=== PATIENT | female | born 1940 | race Caucasian/White ===

== ENCOUNTER 2018-06-02 19:54 | Outpatient (CLI) | payer MEDICARE, BC ==
--- NOTE | 2018-06-03 13:21 | Ultrasound Report ---
Reason: DM W/NEUROPATHY, PAIN Procedure Date: 06/02/2018 Accession Number: [id number] / [id number] Procedure: US - Duplex Lwr Ext Arterial Bilat CPT Code: FULL RESULT: EXAM: Bilateral Lower Extremity Arterial Doppler Ultrasound WITH ANKLE-BRACHIAL INDICES EXAM DATE: 06/02/2018 09:07 PM. CLINICAL HISTORY: DM W/NEUROPATHY, PAIN. COMPARISON: None. TECHNIQUE: Real-time sonographic vascular imaging was performed by the carbide operator, utilizing color-flow, Doppler flow, and spectral analysis. Multiple customer service representative static images were saved for review. FINDINGS: Bilateral lower extremity duplex demonstrates three-vessel patency below the knee on both sides as well as patent common femoral, deep femoral and SFAs on both sides. There are brisk upstrokes with preserved waveforms above the knee bilaterally. On both sides waveforms begin to be attenuated at the level of the popliteal artery without chelle tardus parvus flow. This likely represents distal SFA narrowing at the canal at level which was not directly visualized. On the right, 3 vessel vascular supply is seen to the ankle but the dorsalis pedis artery is not visualized. On the left, there is three-vessel blood supply to the ankle with good flow in the dorsalis pedis artery. The following peak systolic velocities were recorded in centimeters per second: __Please do not describe waveforms but do transcribe the blood pressures in the brachial artery and tibial artery as well as the ankle arm index on both sides. Thank you. Transcription to insert worksheet here. 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 Preserved three-vessel blood flow to both ankles. [facility] ADDENDUM: 06/04/18 14:04 Right Leg: GEEK SQUAD MANAGER: PSV 125.9 cm/sec. PSFA: PSV 119.6 cm/sec. MSFA: PSV 117.2 cm/sec. DSFA: PSV 126.5 cm/sec. PFA: PSV 70.1 cm/sec. POP: PSV 72.3 cm/sec. MARILOU: PSV 58.3. cm/sec. JOINERS SUPERVISOR: PSV 85.4 cm/sec. PER: PSV 75.6 cm/sec. Left Leg: GEEK SQUAD MANAGER: PSV 120.8 cm/sec. PSFA: PSV 145.4 cm/sec. MSFA: PSV 166.8 cm/sec. DSFA: PSV 101.5 cm/sec. PFA: PSV 100.5 cm/sec. POP: PSV 59.7 cm/sec. MARILOU: PSV 57.3 cm/sec. JOINERS SUPERVISOR: PSV 125.4 cm/sec. PER: PSV 106.3 cm/sec. DPA: PSV 81.2 cm/sec. Brachial Artery Systolic Pressure: Right 138/58. Left 152/50. Posterior tibial Artery Systolic Pressure: Right 179/62. Left 161/64. Ankle/Arm Index: Right 1.29. Left 1.05.
== END 2018-06-02 19:55 | disposition home or self-care (01) ==
LOC: DI 19:54
PROVIDERS: ATTEND Podiatrist
DX: I70.229 Atherosclerosis of native arteries of extremities with rest pain, unspecified extremity (principal); E11.42 Type 2 diabetes mellitus with diabetic polyneuropathy; E11.51 Type 2 diabetes mellitus with diabetic peripheral angiopathy without gangrene
CPT/HCPCS: 93922; 93925